=== PATIENT | female | born 1930 | race Caucasian/White ===

== ENCOUNTER 2018-06-21 18:28 | Emergency (ER) | payer OTHER ==
--- NOTE | 2018-06-21 18:41 | PDOC ---
Rapid Medical Evaluation Time Seen by Provider: 06/21/18 18:40 Medical Evaluation: Allergies Allergy/AdvReac Type Severity Reaction Status Date / Time No Known Allergies Allergy Verified 06/21/18 18:39 06/21/18 18:40 I have performed a brief in-person evaluation of this patient. The patient presents with a chief complaint of: lightheaded with elevated BP Pertinent physical exam findings: WNL I have ordered the following: ekg, urine, labs The patient will proceed to the ED for further evaluation. Discharge Disposition - Diagnosis HTN (hypertension) - Referrals - Patient Instructions - Post Discharge Activity
[2018-06-21 18:54] VITALS: TEMP 98.1; BMI 22.8
[2018-06-21 19:23] LABS: BASO % 0.8 % (0-2.0); EOS % 1.6 % (0-4.5); HEMATOCRIT 43.5 % (32.4-45.2); HEMOGLOBIN 14.6 GM/dL (10.7-15.3); LYMPH % 24.3 % (8-40); MCH 30.1 pg (25.7-33.7); MCHC 33.6 g/dl (32.0-36.0); MEAN CELL VOLUME 89.7 fl (80-96); MEAN PLT VOLUME 9.6 fl (7.5-11.1); MONO % 6.3 % (3.8-10.2); PLATELET COUNT 201 K/MM3 (134-434); RBC 4.85 M/mm3 (3.60-5.2); RDW 14.5 % (11.6-15.6); WHITE BLOOD COUNT 5.7 K/mm3 (4.0-10.0)
[2018-06-21 19:47] LABS: ALBUMIN 4.1 g/dl (3.4-5.0); ALK PHOS 51 U/L (45-117); ANION GAP 8 MMOL/L (8-16); BILIRUBIN,TOTAL 0.7 mg/dL (0.2-1); BLOOD UREA NITROGEN 12 mg/dL (7-18); CALCIUM 8.7 mg/dL (8.5-10.1); CHLORIDE 106 mmol/L (98-107); CO2 26 mmol/L (21-32); CREATININE 0.9 mg/dL (0.55-1.3); GLUCOSE,RANDOM 103 mg/dL (74-106); MAGNESIUM 2.4 mg/dL (1.8-2.4); POTASSIUM 4.5 mmol/L (3.5-5.1); SGOT/AST 19 U/L (15-37); SGPT/ALT 15 U/L (13-61); SODIUM 139 mmol/L (136-145); TOT PROT 7.6 g/dl (6.4-8.2)
[2018-06-21 19:48] LABS: INR 0.98 (0.83-1.09); PROTHROMBIN TIME (PATIENT) 11.6 SEC (9.7-13.0)
--- NOTE | 2018-06-21 20:18 | PDOC ---
History of Present Illness - General Chief Complaint: Blood Pressure Problem Stated Complaint: HIGH BLOOD PRESURE Time Seen by Provider: 06/21/18 18:40 History Source: Patient Exam Limitations: No Limitations - History of Present Illness Initial Comments: 88 yo pleasant lady with no reported pmh presents to the ER with elevated BP for the last 3/4 days. She has had multiple BP readings with a systolic BP greater than 200. She states she also had some associated nausea but no emesis as well as exertional lightheadedness and occasional dizziness. The daughter who is at bedside states that on Wednesday night the patient experienced a near syncopal episode but the patient did not actually syncopize, fall down, or hit her head or any other part of her body. She states she did not experience any LOC. She reports that she saw her PCP a few weeks ago and her BP was completely normal. She denies any hx of HTN. She recently had her eyes evaluated at an [facility] and the doc said her vision is perfect for her age. Otherwise she denies any associated symptoms including chest pain, back pain, blurry vision, neck pain, flank pain, dysuria, frequency, urgency, SOB, difficulty breathing, recent fevers, chills, infections, ankle/leg swelling. PCP: Iris Vargas PSH: None reported Allergies: NKA, NKDA Social Hx: Denies smoking, drinking, or other substance usage. Meds: None Past History - Past Medical History Allergies/Adverse Reactions: Allergies Allergy/AdvReac Type Severity Reaction Status Date / Time No Known Allergies Allergy Verified 06/21/18 18:39 COPD: No - Suicide/Smoking/Psychosocial Hx Smoking History: Never smoked Hx Alcohol Use: No Drug/Substance Use Hx: No Review of Systems - Review of Systems Able to Perform ROS?: Yes Comments:: CONSTITUTIONAL: Absent: fever, no chills, no fatigue EYES: Absent: visual changes ENT: Absent: ear pain, no sore throat CARDIOVASCULAR: Present: Lightheadedness Absent: chest pain, no palpitations RESPIRATORY: Absent: cough, no SOB GI: Present: nausea Absent: abdominal pain, no vomiting, no constipation, no diarrhea GENITOURINARY: Absent: dysuria, no frequency, no hematuria MUSKULOSKELETAL: Absent: back pain, no arthralgia, no myalgia SKIN: Absent: rash NEURO: Present: Dizziness Absent: headache *Physical Exam - Vital Signs Last Vital Signs Temp Pulse Resp BP Pulse Ox 98.1 F 87 20 198/99 H 98 06/21/18 18:39 06/21/18 18:39 06/21/18 18:39 06/21/18 18:39 06/21/18 18:39 - Physical Exam Comments: GENERAL: Well-appearing, well-nourished. No apparent distress. HEENT: Normocephalic, atraumatic. PERRL, EOM intact. CARDIOVASCULAR: Normal S1, S2. Regular rate and rhythm. PULMONARY: No evidence of respiratory distress. Lungs clear to auscultation bilaterally. No wheezing, rales or rhonchi. ABDOMEN: Soft, non-distended, non-tender. EXTREMITIES: Normal ROM in all four extremities. No gross deformities. SKIN: Warm, dry. No rash NEUROLOGICAL: No focal neurological deficits. ED Treatment Course - LABORATORY CBC & Chemistry Diagram: 06/21/18 18:52 06/21/18 18:52 - ADDITIONAL ORDERS Additional order review: Laboratory Results 06/21/18 06/21/18 18:52 18:52 PT with INR 11.60 INR 0.98 Sodium 139 Potassium 4.5 Chloride 106 Carbon Dioxide 26 Anion Gap 8 BUN 12 Creatinine 0.9 Creat Clearance w eGFR 59.23 Random Glucose 103 Calcium 8.7 Magnesium 2.4 Total Bilirubin 0.7 AST 19 ALT 15 Alkaline Phosphatase 51 Creatine Kinase 80 Troponin I < 0.02 Total Protein 7.6 Albumin 4.1 06/21/18 18:52 RBC 4.85 MCV 89.7 MCHC 33.6 RDW 14.5 MPV 9.6 Neutrophils % 67.0 Lymphocytes % 24.3 Monocytes % 6.3 Eosinophils % 1.6 Basophils % 0.8 - RADIOLOGY Radiology Studies Ordered: Category Date Time Status HEAD CT WITHOUT CONTRAST [CT] Stat CT Scan 06/21/18 20:09 Ordered Medical Decision Making - Medical Decision Making 88 yo pleasant lady with no reported pmh presents to the ER with elevated BP for the last 3/4 days. She has had multiple BP readings with a systolic BP greater than 200. She states she also had some associated nausea but no emesis as well as exertional lightheadedness and occasional dizziness. The daughter who is at bedside states that on Wednesday night the patient experienced a near syncopal episode but the patient did not actually syncopize, fall down, or hit her head or any other part of her body. She states she did not experience any LOC. She reports that she saw her PCP a few weeks ago and her BP was completely normal. She denies any hx of HTN. She recently had her eyes evaluated at [facility] and the doc said her vision is perfect for her age. VS: At bedside her BP is 210/110 DDx IBNLT: Hypertensive emergency vs urgency, CVA/TIA, asymptomatic Htn, ACS/ [place]. Plan: Labs, EKG, CXR, Head Ct, norvasc, re-assess. Labs unremarkable CXR, EKG and head CT unremarkable patient is asymptomatic here in the ED. BP went down to 144/85 after 5 of norvasc - Patient has an appointment with her PCP on . - Will DC with supportive care and return precautions. *DC/Admit/Observation/Transfer Diagnosis at time of Disposition: HTN (hypertension), Hypertensive urgency - Discharge Dispostion Disposition: HOME Condition at time of disposition: Improved Decision to Admit order: No - Referrals Referrals: Melissa Vargas [Primary Care Provider] - - Patient Instructions Printed Discharge Instructions: DI for High Blood Pressure, How to Monitor Your Blood Pressure at Home Additional Instructions: You came into the ER with elevated blood pressure. You had no symptoms here in the ED. We looked at your blood, did a cat scan of your head, an electrocardiogram and found no abnormalities. Your blood pressure went down to a normal number after 5 mg of norvasc. It is very important that you follow up with your primary care doctor in the next 3 days to make sure your blood pressure is under control and you are being taken care of. Come back to the ER immediately if you get a headache, become nauseous, start vomiting, have chest or back pain, shortness of breath or difficulty breathing, blurry vision, or any other new or worsening concerns. Thank you for coming to the [facility] ER. We hope you feel better soon! Print Language: [place] - Post Discharge Activity
[2018-06-21] MEDS ORDERED: amLODIPine BESYLATE 5 MG TABLET (FP) PO ONE (20:21)
[2018-06-21] MEDS ORDERED: amLODIPine BESYLATE 5 MG TABLET (FP) ONE (20:24)
[2018-06-21 21:40] VITALS: BP 144/85; PULSE 76
--- NOTE | 2018-06-21 22:06 | PDOC ---
Attending Attestation - Resident Resident Name: John Jimenez - ED Attending Attestation I have performed the following: I have examined & evaluated the patient, The case was reviewed & discussed with the resident, I agree w/resident's findings & plan, Exceptions are as noted - HPI HPI: 06/21/18 22:05 88-year-old female had an episode of near-syncope this weekend and has since been taking her blood pressure. She is finding her blood pressure is elevated and she is never been on any blood pressure medications Denies any acute shortness of breath, anterior chest pain, nausea, vomiting, fever, chills, diarrhea, abdominal pain, visual changes or headache - Physicial Exam PE: 06/21/18 22:18 thin ,alert and conversant 88 yo female. 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 There is no CAT scan evidence of any acute intracranial pathology. No hemorrhage, no infarct, no shift of midline structures. 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 Her CBC and chemistries were within normal limits. Her troponin was negative. She does have a neb appointment this with her primary care physician. Her blood pressure came down with Norvasc and she will be discharged home
--- NOTE | 2018-06-22 11:05 | EKG ---
Test Reason : Blood Pressure : / mmHG Vent. Rate : 069 BPM Atrial Rate : 069 BPM P-R Int : 170 ms QRS Dur : 066 ms QT Int : 404 ms P-R-T Axes : 051 -04 035 degrees QTc Int : 432 ms NORMAL SINUS RHYTHM ANTERIOR INFARCT , AGE UNDETERMINED ABNORMAL ECG NO PREVIOUS ECGS AVAILABLE Confirmed by CONNIE RAMIREZ MD ([id number]) on 06/22/2018 11:05:03 AM Referred By: Confirmed By:CONNIE RAMIREZ MD
== END 2018-06-21 22:16 | disposition home or self-care (01) ==
LOC: JER 18:28
DX: I16.0 Hypertensive urgency (principal)
CPT/HCPCS: 36415; 70450-TC; 71046-TC-FY; 80053; 82550; 83735; 84484; 85025; 85610; 93005; 93010; 99283-25

== ENCOUNTER 2019-03-28 17:37 | Emergency (ER) | payer OTHER ==
[2019-03-28 17:59] VITALS: TEMP 97.8; BMI 22.8
--- NOTE | 2019-03-28 17:59 | PDOC ---
Rapid Medical Evaluation Chief Complaint: Blood Pressure Problem Time Seen by Provider: 03/28/19 17:57 Medical Evaluation: Allergies Allergy/AdvReac Type Severity Reaction Status Date / Time No Known Allergies Allergy Verified 06/21/18 18:39 03/28/19 17:57 Pt c/o: elevated BP reading 170/101, frontal headache, no cp , no sob, no edema , no change in BP meds, no weight change, diet is consistent Pt on brief exam: bp WNL, no neurofocal deficits Pt ordered for: ekg, urine, and labs Pt to proceed to the ED Discharge Disposition - Diagnosis Headache HTN (hypertension) Qualifiers: Hypertension type: essential hypertension Qualified Code(s): I10 - Essential ( primary) hypertension - Discharge Dispostion Disposition: HOME Condition at time of disposition: Stable - Referrals Referrals: Melissa Vargas [Primary Care Provider] - - Patient Instructions Printed Discharge Instructions: DI for High Blood Pressure Additional Instructions: Take Tylenol or Motrin as needed for headaches. Keep a diary of all food to eat and activities performed prior to headaches starting. Make an appointment with your primary doctor for reevaluation within the next week. Return to emergency department for worsening headache, blurry vision, dizziness , nausea, vomiting or any other concerns. Thank you very much for for choosing us to provide emergent health care needs. - Post Discharge Activity
[2019-03-28 18:37] LABS: BASO % 0.5 % (0-2.0); EOS % 1.3 % (0-4.5); HEMATOCRIT 43.6 % (32.4-45.2); HEMOGLOBIN 14.7 GM/dL (10.7-15.3); LYMPH % 18.4 % (8-40); MCH 30.2 pg (25.7-33.7); MCHC 33.7 g/dl (32.0-36.0); MEAN CELL VOLUME 89.6 fl (80-96); MEAN PLT VOLUME 9.3 fl (7.5-11.1); MONO % 4.9 % (3.8-10.2); NEUT % 74.9 % (42.8-82.8); PLATELET COUNT 211 K/MM3 (134-434); RBC 4.87 M/mm3 (3.60-5.2); RDW 14.2 % (11.6-15.6); WHITE BLOOD COUNT 7.4 K/mm3 (4.0-10.0)
[2019-03-28 19:04] LABS: PH,URINE 6.5 (5.0-8.0); URINE APPEARANCE CLEAR; URINE BILIRUBIN NEGATIVE (NEGATIVE); URINE COLOR YELLOW; URINE GLUCOSE (UA) NEGATIVE (NEGATIVE); URINE KETONE NEGATIVE (NEGATIVE); URINE LEUK ESTERASE NEGATIVE (NEGATIVE); URINE NITRITE NEGATIVE (NEGATIVE); URINE PROTEIN NEGATIVE (NEGATIVE); URINE UROBILINOGEN 0.2 mg/dL (0.2-1.0)
[2019-03-28 19:06] LABS: ALBUMIN 3.8 g/dl (3.4-5.0); BILIRUBIN,TOTAL 0.5 mg/dL (0.2-1); BLOOD UREA NITROGEN 8.6 mg/dL (7-18); CALCIUM 9.6 mg/dL (8.5-10.1); CREATININE 0.9 mg/dL (0.55-1.3); TOT PROT 7.7 g/dl (6.4-8.2)
[2019-03-28 20:30] VITALS: BP 135/82; PULSE 82
--- NOTE | 2019-03-28 20:50 | PDOC ---
History of Present Illness - General Chief Complaint: Blood Pressure Problem Stated Complaint: HYPERTENTION Time Seen by Provider: 03/28/19 17:57 History Source: Patient Exam Limitations: No Limitations - History of Present Illness Initial Comments: 03/28/19 20:44 HISTORY OF PRESENT ILLNESS: 89-year-old woman with past medical history of hypertension who presents emergency department for evaluation of frontal headache radiating in a bandlike fashion to the occiput and down the neck into the shoulders starting yesterday. Patient reports she did not take any medication for her headache but then took her blood pressure medicine this morning. Patient noted to have an elevated blood pressure at home with multiple readings greater than 170 systolic. Patient called her primary doctor and was referred to the emergency department for evaluation. She denies fevers , chills, blurry vision, dizziness, nausea, vomiting, chest pain, shortness of breath. Patient is pain-free at the time of exam. No recent travel or sick contacts. PAST MEDICAL HISTORY: Hypertension SURGICAL HISTORY: Denies ALLERGIES: No known drug allergies REVIEW OF SYSTEMS General/Constitutional: Denies fever or chills. Denies weakness, weight change. HEENT: Denies change in vision. Denies ear pain or discharge. Denies sore throat. Cardiovascular: Denies chest pain or shortness of breath. Respiratory: Denies cough, wheezing, or hemoptysis. Gastrointestinal: Denies nausea, vomiting, diarrhea or constipation. Denies rectal bleeding. Genitourinary: Denies dysuria, frequency, or change in urination. Musculoskeletal: Denies joint or muscle swelling or pain. Denies neck or back pain. Skin and breasts: Denies rash or easy bruising. Neurologic: See HPI Psychiatric: Denies depression or anxiety. Endocrine: Denies increased thirst. Denies abnormal weight change. Hematologic/Lymphatic: Denies anemia, easy bleeding, or history of blood clots. Allergic/Immunologic: Denies hives or skin allergy. Denies latex allergy. PHYSICAL EXAM General Appearance: Well-appearing, appropriately dressed. No apparent distress , no intoxication. HEENT: EOMI, PERRLA, normal ENT inspection, normal voice, TMs normal, pharynx normal. No conjunctival pallor. No photophobia, scleral icterus. Neck: Supple. Trachea midline. No tenderness, rigidity, carotid bruit, stridor , lymphadenopathy, or thyromegaly. Respiratory/Chest: Lungs CTAB. No shortness of breath, chest tenderness, respiratory distress, accessory muscle use. No crackles, rales, rhonchi, stridor , wheezing, dullness Cardiovascular: RRR. S1, S2. No JVD, murmur, bradycardia, tachycardia. Vascular Pulses: Dorsalis-Pedis (R): 2+, Dorsalis-Pedis (L): 2+ Gastrointestinal/Abdominal: Normal bowel sounds. Abdomen soft, non-distended. No tenderness or rebound tenderness. No organomegaly, pulsatile mass, guarding, hernia, hepatomegaly, splenomegaly. Lymphatic: No adenopathy, tenderness. Musculoskeletal/Extremities: Normal inspection. FROM of all extremities, normal capillary refill. Pelvis Stable. No CVA tenderness. No tenderness to extremities, pedal edema, swelling, erythema or deformity. Integumentary: Appropriate color, dry, warm. No cyanosis, erythema, jaundice or rash Neurologic: furnace tender II-XII intact. Fully oriented, alert. Appropriate mood/affect. Motor strength 5/5. No appreciable EOM palsy, facial droop or sensory deficit. Gait steady. Able to perform rapid alternating movements without difficulty. Past History - Past Medical History Allergies/Adverse Reactions: Allergies Allergy/AdvReac Type Severity Reaction Status Date / Time No Known Allergies Allergy Verified 06/21/18 18:39 COPD: No - Psycho Social/Smoking Cessation Hx Smoking History: Never smoked Information on smoking cessation initiated: No Hx Alcohol Use: No Drug/Substance Use Hx: No *Physical Exam - Vital Signs Last Vital Signs Temp Pulse Resp BP Pulse Ox 97.8 F 82 18 135/82 100 03/28/19 17:55 03/28/19 20:28 03/28/19 20:28 03/28/19 20:28 03/28/19 20:28 ED Treatment Course - LABORATORY CBC & Chemistry Diagram: 03/28/19 18:15 03/28/19 18:15 - ADDITIONAL ORDERS Additional order review: Laboratory Results 03/28/19 03/28/19 18:15 18:15 Sodium 139 Potassium 4.0 Chloride 107 Carbon Dioxide 27 Anion Gap 6 L BUN 8.6 Creatinine 0.9 Est GFR (CKD-EPI)AfAm 66.16 Est GFR (CKD-EPI)NonAf 57.09 Random Glucose 106 Calcium 9.6 Total Bilirubin 0.5 AST 18 ALT 18 Alkaline Phosphatase 58 Total Protein 7.7 Albumin 3.8 Urine Color Yellow Urine Appearance Clear Urine pH 6.5 Ur Specific [place] 1.008 L Urine Protein Negative Urine Glucose (UA) Negative Urine Ketones Negative Urine Blood Negative Urine Nitrite Negative Urine Bilirubin Negative Urine Urobilinogen 0.2 Ur Leukocyte Esterase Negative 03/28/19 18:15 RBC 4.87 MCV 89.6 MCHC 33.7 RDW 14.2 MPV 9.3 Neutrophils % 74.9 Lymphocytes % 18.4 D Monocytes % 4.9 Eosinophils % 1.3 Basophils % 0.5 Medical Decision Making - Medical Decision Making 03/28/19 20:50 A/P: 89-year-old woman with resolved headache Physical exam is within normal limits Gait is steady Able to perform rapid alternating movements Cranial nerves II through XII grossly intact Laboratory testing is unremarkable. CT scan is read by Dr. Grant: No evidence of acute intracranial pathology or significant change. EKG sinus rhythm with rate of 74. Normal intervals present. QTc 455 ms. No ischemic changes noted. Given normal physical exam, normal laboratory testing, normal CT scan and resolution of pain I feel it is safe to discharge the patient home to follow-up with her primary doctor. Patient has been instructed to take Tylenol or Motrin at the first sign of headaches to prevent escalation of pain. I discussed the physical exam findings, ancillary test results and final diagnoses with the patient. I answered all of the patient's questions. The patient was satisfied with the care received and felt comfortable with the discharge plan and treatment plan. The patient will call their primary care physician within 24 hours to arrange follow-up and will return to the Emergency Department with any new, persistent or worsening symptoms. 03/28/19 20:50 03/28/19 20:51 03/28/19 21:00 Discharge - Discharge Information Problems reviewed: Yes Clinical Impression/Diagnosis: Headache Qualifiers: Headache type: tension-type Headache chronicity pattern: acute headache Intractability: not intractable Qualified Code(s): G44.209 - Tension-type headache, unspecified, not intractable HTN (hypertension) Qualifiers: Hypertension type: essential hypertension Qualified Code(s): I10 - Essential ( primary) hypertension Disposition: HOME - Admission No - Follow up/Referral Referrals: Melissa Vargas [Primary Care Provider] - - Patient Discharge Instructions Patient Printed Discharge Instructions: DI for High Blood Pressure Additional Instructions: Take Tylenol or Motrin as needed for headaches. Keep a diary of all food to eat and activities performed prior to headaches starting. Make an appointment with your primary doctor for reevaluation within the next week. Return to emergency department for worsening headache, blurry vision, dizziness , nausea, vomiting or any other concerns. Thank you very much for for choosing us to provide emergent health care needs. - Post Discharge Activity
--- NOTE | 2019-03-28 21:10 | PDOC ---
*Physical Exam - Vital Signs Last Vital Signs Temp Pulse Resp BP Pulse Ox 97.8 F 82 18 135/82 100 03/28/19 17:55 03/28/19 20:28 03/28/19 20:28 03/28/19 20:28 03/28/19 20:28 ED Treatment Course - LABORATORY CBC & Chemistry Diagram: 03/28/19 18:15 03/28/19 18:15 - ADDITIONAL ORDERS Additional order review: Laboratory Results 03/28/19 03/28/19 18:15 18:15 Sodium 139 Potassium 4.0 Chloride 107 Carbon Dioxide 27 Anion Gap 6 L BUN 8.6 Creatinine 0.9 Est GFR (CKD-EPI)AfAm 66.16 Est GFR (CKD-EPI)NonAf 57.09 Random Glucose 106 Calcium 9.6 Total Bilirubin 0.5 AST 18 ALT 18 Alkaline Phosphatase 58 Total Protein 7.7 Albumin 3.8 Urine Color Yellow Urine Appearance Clear Urine pH 6.5 Ur Specific [place] 1.008 L Urine Protein Negative Urine Glucose (UA) Negative Urine Ketones Negative Urine Blood Negative Urine Nitrite Negative Urine Bilirubin Negative Urine Urobilinogen 0.2 Ur Leukocyte Esterase Negative 03/28/19 18:15 RBC 4.87 MCV 89.6 MCHC 33.7 RDW 14.2 MPV 9.3 Neutrophils % 74.9 Lymphocytes % 18.4 D Monocytes % 4.9 Eosinophils % 1.3 Basophils % 0.5 Medical Decision Making - Medical Decision Making 03/28/19 21:Patient seen by the advanced practice provider under my direct supervision. Ancillary testing reviewed as necessary. I agree with plan as outlined by the advanced practice provider. Discharge - Discharge Information Problems reviewed: Yes Clinical Impression/Diagnosis: Headache Qualifiers: Headache type: tension-type Headache chronicity pattern: acute headache Intractability: not intractable Qualified Code(s): G44.209 - Tension-type headache, unspecified, not intractable HTN (hypertension) Qualifiers: Hypertension type: essential hypertension Qualified Code(s): I10 - Essential ( primary) hypertension Disposition: HOME - Follow up/Referral Referrals: Melissa Vargas [Primary Care Provider] - - Patient Discharge Instructions Patient Printed Discharge Instructions: DI for High Blood Pressure Additional Instructions: Take Tylenol or Motrin as needed for headaches. Keep a diary of all food to eat and activities performed prior to headaches starting. Make an appointment with your primary doctor for reevaluation within the next week. Return to emergency department for worsening headache, blurry vision, dizziness , nausea, vomiting or any other concerns. Thank you very much for for choosing us to provide emergent health care needs. - Post Discharge Activity
--- NOTE | 2019-03-29 10:03 | EKG ---
Test Reason : Blood Pressure : / mmHG Vent. Rate : 074 BPM Atrial Rate : 074 BPM P-R Int : 166 ms QRS Dur : 068 ms QT Int : 410 ms P-R-T Axes : 049 -17 062 degrees QTc Int : 455 ms NORMAL SINUS RHYTHM SEPTAL INFARCT (CITED ON OR BEFORE 21-JUN-2018) ABNORMAL ECG WHEN COMPARED WITH ECG OF 21-JUN-2018 18:46, QUESTIONABLE CHANGE IN INITIAL FORCES OF SEPTAL LEADS Confirmed by CONNIE RAMIREZ MD ([id number]) on 03/29/2019 10:02:43 AM Referred By: Confirmed By:CONNIE RAMIREZ MD
== END 2019-03-28 21:13 | disposition home or self-care (01) ==
LOC: JER 17:37
DX: G44.209 Tension-type headache, unspecified, not intractable (principal); I10 Essential (primary) hypertension
CPT/HCPCS: 36415; 70450-TC; 80053; 81003; 85025; 93005; 93010; 99283-25